=== PATIENT | female | born 1980 | race American Indian/Alaskan Native ===

== ENCOUNTER 2017-04-05 08:36 | Inpatient (IN) | payer MEDICAID ==
[2017-04-05] MEDS ORDERED: POLYCILLIN/NS 2 GM/100 ML 2 GM/100 ML BAG IV ONE ×2 (08:51→10:28)
[2017-04-05] MEDS ORDERED: LACTATED RINGERS 1,000 ML ONE (08:51)
[2017-04-05] MEDS ORDERED: SUBLIMAZE ONE (09:24)
[2017-04-05] MEDS ORDERED: MINERAL OIL PO PRN (10:28)
[2017-04-05] MEDS ORDERED: SUBLIMAZE IV PRN (10:28)
[2017-04-05] MEDS ORDERED: XYLOCAINE 2% INFILTRATI ONE (10:28)
[2017-04-05] MEDS ORDERED: ZOFRAN IV PRN (10:28)
[2017-04-05] MEDS ORDERED: ePHEDrine SULFATE IV PRN (10:28)
[2017-04-05] MEDS ORDERED: BRETHINE IVP PRN (10:28)
[2017-04-05] MEDS ORDERED: BRETHINE SUB-Q PRN (10:28)
[2017-04-05] MEDS ORDERED: NARCAN 0.4 MG/1 ML IV PRN (10:28)
[2017-04-05 10:35] LABS: Hematocrit 37.7 % (30.3-42.9); Hemoglobin 12.5 gm/dl (10.1-14.3); Mean Corpuscular HGB Conc 33 % (30-34); Mean Corpuscular Hemoglobin 30 pg (28-32); Mean Corpuscular Volume 89 fl (79-97); Platelet Count 296 K/mm3 (140-440); Red Blood Count 4.21 M/mm3 (3.65-5.03)
--- NOTE | 2017-04-05 10:41 | History and Physical Report ---
History of Present Illness Date of examination: 04/05/17 Date of admission: 04/05/17 08:49 Chief complaint: My water broke at 11:00PM last night. It was a large amount of clear fluid. History of present illness: Late entry to care at 17 5/7 Weeks. Hx of CHTN, took no meds during and denies all s/s of PIH. Co- managed with [facility], non-compliant with visits, last visit was 01/31/17. course complicated by AMA, Vit. 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 Past History Past Medical History: no pertinent history Past Surgical History: no surgical history [employer] History: herpes, other (HPV) Family/Genetic History: none Social history: no significant social history, single - Obstetrical History Expected Date of Delivery: 04/16/17 Actual Gestation: 38 Week(s) 3 Day(s) Para: 4 Hx # Term Pregnancies: 1 Spontaneous Abortions: 2 Number of Living Children: 1 #1 Infant Gender: Male year: 2 Birthweight: 4.139 kg Method of Delivery: Vaginal Gestational age at delivery: 41 Complications: none Medications and Allergies Active Meds: Active Medications Ephedrine Sulfate (Ephedrine Sulfate) 10 mg IV Q2M PRN PRN Reason: Hypotension Stop: 04/05/17 10:33 Fentanyl (Sublimaze) 100 mcg IV Q2H PRN PRN Reason: Labor Pain Ampicillin Sodium (Polycillin/Ns 1 Gm/50 Ml) 1 gm in 50 mls @ 100 mls/hr IV Q4H AYANNA PRN Reason: Protocol Ampicillin Sodium (Polycillin/Ns 2 Gm/100 Ml) 2 gm in 100 mls @ 100 mls/hr IV ONCE ONE PRN Reason: Protocol Stop: 04/05/17 11:27 Lactated Ringer's (Lactated Ringers) 1,000 mls @ 125 mls/hr IV DIRECT AYANNA Oxytocin/Sodium Chloride (Pitocin/Ns 20 Unit/1000ml Drip) 20 units in 1,000 mls @ 125 mls/hr IV DIRECT AYANNA Oxytocin/Sodium Chloride (Pitocin/Ns 30 Unit/500ml) 30 units in 500 mls @ 4 mls /hr IV TITR AYANNA PRN Reason: Protocol Lidocaine (Xylocaine 2%) 20 ml INFILTRATI ONCE ONE Stop: 04/05/17 10:29 Mineral Oil (Mineral Oil) 30 ml PO QHS PRN PRN Reason: Constipation Naloxone HCl (Narcan 0.4 Mg/1 Ml) 0.1 mg IV Q2MIN PRN PRN Reason: Res Rate </= 8 or 02 SAT < 92% Ondansetron HCl (Zofran) 4 mg IV Q8H PRN PRN Reason: Nausea And Vomiting Terbutaline Sulfate (Brethine) 0.25 mg SUB-Q ONCE PRN PRN Reason: Hyperstimulation/Hypertonicity Stop: 04/05/17 10:29 Terbutaline Sulfate (Brethine) 0.25 mg IVP ONCE PRN PRN Reason: Hyperstimulation/Hypertonicity Stop: 04/05/17 10:29 Review of Systems All systems: negative - Vital Signs Vital signs: Vital Signs Pulse BP 103 H 133/75 04/05/17 08:43 04/05/17 08:43 Temp Pulse Resp BP Pulse Ox 106 H 130/75 04/05/17 09:48 04/05/17 09:48 - Physical Exam Breasts: Positive: normal Cardiovascular: Regular rate Lungs: Positive: Clear to auscultation, Normal air movement Abdomen: Positive: normal appearance, soft, normal bowel sounds Genitourinary (Female): Positive: normal external genitalia, normal perenium Uterus: Positive: enlarged Anus/Rectum: Positive: normal perianal skin Extremities: Positive: normal - Obstetrical FHR: category 1 Uterine Contraction Monitor Mode: External Cervical Dilatation: 8 (no leaking of fluid upon exam) Cervical Effacement Percentage: 90 station: 0 Uterine Contraction Frequency (min): 3 Uterine Contraction Pattern: Regular Uterine Tone Measurement Phase: Contraction Uterine Contraction Intensity: Moderate Results All other labs normal. Assessment and Plan A: IUP @ 38 3/7 Weeks Category I Tracing SROM GBS Unknown P: Admit to L&D per routine orders GBS Prophylaxis Pitocin Augmentation
[2017-04-05] MEDS ORDERED: PITOCin/NS 30 UNIT/500ML 30 UNITS/500 ML BAG IV SCH (11:00)
[2017-04-05] MEDS ORDERED: LACTATED RINGERS 1,000 ML IV SCH (11:00)
[2017-04-05] MEDS ORDERED: PITOCin/NS 20 UNIT/1000ML DRIP 20 UNITS/1,000 ML BAG IV SCH (11:00)
[2017-04-05] MEDS ORDERED: NORCO 5/325 PO PRN (11:19)
[2017-04-05] MEDS ORDERED: TUCKS PAD TP PRN (11:19)
[2017-04-05] MEDS ORDERED: LANSINOH TP PRN (11:19)
[2017-04-05] MEDS ORDERED: DULCOLAX PR PRN (11:19)
[2017-04-05] MEDS ORDERED: BENADRYL PO PRN (11:19)
[2017-04-05] MEDS ORDERED: PHENERGAN PR PRN (11:19)
[2017-04-05] MEDS ORDERED: MILK OF MAGNESIA PO PRN (11:19)
--- NOTE | 2017-04-05 11:25 | Procedure Note ---
OB Delivery Note - Delivery Date of Delivery: 04/05/17 (1107) Surgeon: MEGAN DEVINE Estimated blood loss: 200cc - Vaginal Delivery presentation: vertex Delivery position: OA Intrapartum events: none Delivery induction: none Delivery augmentation: pitocin Delivery monitor: external FHT, external uterine Route of delivery: Delivery placenta: spontaneous Delivery cord: 3 umbilical vessels Episiotomy: none Delivery laceration: none Anesthesia: none Delivery comments: of a live 7'11 male over a intact perineum under IV pain control with Apgars of 8 and 9 at 1107 on 04/05/2017. Infant directly to maternal abd/ chest, skin to skin contact. Spontaneous delivery of placenta complete and intact with Calvin side presenting at 1109. Fundus is firm and midline located 4 below the U. Lochia is scant. Delayed cord clamping and cutting. GBS prophylaxis x 1. - A at 1 minute: 8 at 5 minutes: 9 Infant Gender: Male (7'11)
[2017-04-05] MEDS ORDERED: SODIUM CHLORIDE FLUSH SYRINGE 10 ML IV NR (12:00)
[2017-04-05] MEDS ORDERED: POLYCILLIN/NS 1 GM/50 ML 1 GM/50 ML BAG IV SCH (14:30)
[2017-04-05 22:30] LABS: Hematocrit 34.1 % (30.3-42.9); Hemoglobin 11.1 gm/dl (10.1-14.3)
[2017-04-06] MEDS: MOTRIN PO SCH ×4 (00:09→18:28)
--- NOTE | 2017-04-06 08:45 | Progress Note ---
Assessment and Plan A: PPD #1 - stable P: Discharge home in am Subjective - Subjective Date of service: 04/06/17 Principal diagnosis: Patient reports: appetite normal [place]: doing well Objective - Vital Signs Latest vital signs: Vital Signs Temp Pulse Resp BP 04/06/17 08:20 98 F 80 18 99/55 04/06/17 00:30 98.7 F 89 20 102/58 04/06/17 00:09 18 04/05/17 20:45 98.8 F 87 20 114/65 04/05/17 17:53 98.3 F 86 19 128/64 04/05/17 13:07 98.5 F 89 18 132/69 04/05/17 12:04 100 H 128/67 04/05/17 11:49 100 H 126/60 04/05/17 11:35 109 H 126/63 04/05/17 11:21 104 H 114/62 04/05/17 09:48 106 H 130/75 Intake and Output 04/05/17 04/06/17 04/06/17 22:59 06:59 14:59 Intake Total 740 600 Output Total 1350 600 Balance -610 0 Intake: IV 500 PITOCin/NS 20 UNIT/1000ML 500 DRIP 20 units In 1,000 ml @ 125 mls/hr IV DIRECT AYANNA Rx#:[id number] Oral 240 600 Output: Urine 1350 600 Void 1350 600 Other: Total, Intake Amount 240 240 Total, Output Amount 700 600 # Voids Void 1 1 1 - Exam Breasts: Present: deferred Cardiovascular: Present: Regular rate Lungs: Present: Clear to auscultation Abdomen: Present: soft Vulva: both: normal Uterus: Present: fundal height below umbilicus Deep Tendon Reflex Grade: Normal +2 - Labs Labs: Abnormal lab results 04/05/17 Range/Units 09:20 WBC 17.0 H (4.5-11.0) K/mm3
--- NOTE | 2017-04-06 08:46 | Discharge Summary ---
Providers - Providers Date of Admission: 04/05/17 08:49 Date of discharge: 04/07/17 Attending physician: JUWAN WILL MD Primary care physician: JUWAN WILL MD Hospitalization Reason for admission: active labor Delivery: Episiotomy: none Laceration: none Other procedures: none complications: none Discharge diagnosis: IUP at term delivered [place] baby: male Condition at discharge: Good Disposition: DC-01 TO HOME OR SELFCARE Plan - Provider Discharge Summary Activity: routine, no sex for 6 weeks, no strenuous exercise Diet: routine Instructions: routine Additional instructions: [] Smoking cessation referral if applicable(refer to patient education folder for contact #) [] Refer to [facility]'s [facility] Booklet Call your doctor immediately for: * Fever > 100.5 * Heavy vaginal bleeding ( >1 pad per hour) * Severe persistent headache * Shortness of breath * Reddened, hot, painful area to leg or breast * Drainage or odor from incision. * Keep incision clean and dry at all times and follow doctor's instructions regarding bathing/showering - Follow up plan Follow up: [facility] [Provider Group] - 6 Weeks
[2017-04-06] MEDS: PRENATAL VITAMIN PO SCH (11:58)
[2017-04-07] MEDS: MOTRIN PO SCH ×2 (00:08→12:42)
[2017-04-07] MEDS: PRENATAL VITAMIN PO SCH (12:43)
[2017-04-07 12:58] VITALS: BP 107/59
== END 2017-04-07 17:10 | disposition home or self-care (01) | DRG 774 ==
LOC: TRG 08:36 → LD 08:49 → OB 13:10
PROVIDERS: ADMIT Obstetrics & Gynecology; ATTEND Obstetrics & Gynecology
PROC: 10E0XZZ Delivery of Products of Conception, External Approach (ICD-10-PCS; principal; 2017-04-05)
DX: O42.02 Full-term premature rupture of membranes, onset of labor within 24 hours of rupture (principal); O16.4 Unspecified maternal hypertension, complicating childbirth; Z3A.38 38 weeks gestation of pregnancy; Z37.0 Single live birth; O99.02 Anemia complicating childbirth; D64.9 Anemia, unspecified
CPT/HCPCS: 36415; 85014; 85018; 85027; 86850; 86900; 86901; 99211; A6250; G0463; J0290; J2590; J3010; J7120